=== PATIENT | female | born 1955 | race Caucasian/White ===

== ENCOUNTER 2017-07-19 17:05 | Emergency (ER) | payer OTHER ==
[2017-07-19 17:33] VITALS: BP 144/92
--- NOTE | 2017-07-19 18:12 | UC ---
Knee Pain HPI - HPI Summary HPI Summary: While at work yesterday patient lifted up a box hit her knee planted twisted to move the box and had a sudden onset and pain in her left knee now when she weight bears on her knee or goes to stand on her knee she has a sensation her knee is going to give out patient has pain to the right and left of her patella - History of Current Complaint Chief Complaint: UCLowerExtremity Stated Complaint: KNEE INJURY Time Seen by Provider: 07/19/17 18:11 Hx Obtained From: Patient ?: No Onset/Duration: Sudden Onset, Lasting Days - 1 Severity Initially: Mild Severity Currently: Mild Location Of Injury: Left knee Pain Intensity: 3 Pain Scale Used: 0-10 Numeric Character: Aching, Throbbing Aggravating Factor(s): Movement, Weight Bearing Associated Signs And Symptoms: Positive: Weakness Able to Bear Weight: Yes - Allergies/Home Medications Allergies/Adverse Reactions: Allergies Allergy/AdvReac Type Severity Reaction Status Date / Time No Known Allergies Allergy Verified 07/19/17 17:32 PMH/Surg Hx/FS Hx/Imm Hx Previously Healthy: No - Surgical History Surgical History: Yes Surgery Procedure, Year, and Place: tonsillectomy. tubal ligation - Family History Known Family History: Positive: None - Social History Occupation: Employed Full-time Lives: With Family Alcohol Use: Rare Substance Use Type: None Smoking Status (MU): Never Smoked Tobacco Review of Systems Constitutional: Negative Skin: Negative Eyes: Negative ENT: Negative Respiratory: Negative Cardiovascular: Negative Gastrointestinal: Negative Genitourinary: Negative Motor: Negative Neurovascular: Negative Musculoskeletal: Arthralgia - Left knee Neurological: Negative Psychological: Negative Is Patient Immunocompromised?: No All Other Systems Reviewed And Are Negative: Yes Physical Exam Triage Information Reviewed: Yes Appearance: Well-Appearing, No Pain Distress, Well-Nourished Vital Signs: Initial Vital Signs Temp 98.6 F 07/19/17 17:28 Pulse 75 07/19/17 17:28 Resp 14 07/19/17 17:28 BP 144/92 07/19/17 17:28 Pulse Ox 100 07/19/17 17:28 Vital Signs Reviewed: Yes Eye Exam: Normal Eyes: Positive: Conjunctiva Clear ENT Exam: Normal ENT: Positive: Normal ENT inspection, Hearing grossly normal. Negative: Nasal congestion, Nasal drainage, Trismus, Muffled voice, Hoarse voice, Dental tenderness Neck exam: Normal Neck: Positive: Supple, Nontender, No Lymphadenopathy Respiratory Exam: Normal Respiratory: Positive: Chest non-tender, Lungs clear, Normal breath sounds, No respiratory distress, No accessory muscle use Cardiovascular Exam: Normal Cardiovascular: Positive: RRR, No Murmur, Pulses Normal, Brisk Capillary Refill Musculoskeletal Exam: Normal Musculoskeletal: Positive: Strength Intact, ROM Intact, No Edema Neurological Exam: Normal Neurological: Positive: Alert Psychological Exam: Normal Skin Exam: Normal Diagnostics - Radiology No standard instances Xray Interpretation: No Acute Changes Radiology Interpretation Completed By: Radiologist Knee Pain Course/Dx - Course Course Of Treatment: Corby wrap knee immobilizer and crutches Tylenol for pain rest ice elevation and follow knee with orthopedic doctor on-call follow blood pressure with primary care doctor referral made - Differential Dx/Diagnosis Provider Diagnoses: Elevated blood pressure without diagnosis of hypertension, left knee injury Discharge - Sign-Out/Discharge Documenting (check all that apply): Discharge - Discharge Plan Condition: Stable Disposition: HOME Patient Education Materials: Crutch Instructions (ED), Knee Pain (ED), Hypertension (ED), Ice Pack Application (ED), Knee Immobilizer (ED) Forms: *Work Release Referrals: [facility] [Outside] - 1 Week Jeremy Conway MD [Medical Doctor] - 3 Days - Billing Disposition and Condition Condition: STABLE Disposition: HOME
--- NOTE | 2017-07-19 19:00 | RAD ---
HISTORY: Left knee injury COMPARISONS: None VIEWS: 5, Frontal, lateral, axial, and oblique views of the left knee FINDINGS: BONE DENSITY: Normal. BONES: There is no displaced fracture. JOINTS: There is no arthropathy. There is no suprapatellar joint effusion or lipohemarthrosis. ALIGNMENT: There is no dislocation. SOFT TISSUES: Unremarkable. OTHER FINDINGS: None. IMPRESSION: NO ACUTE OSSEOUS INJURY. IF SYMPTOMS PERSIST, RECOMMEND REPEAT IMAGING.
== END 2017-07-19 19:45 | disposition home or self-care (01) ==
LOC: UCEAST 17:05
DX: S89.92XA Unspecified injury of left lower leg, initial encounter (principal); X50.0XXA Overexertion from strenuous movement or load, initial encounter; Y92.9 Unspecified place or not applicable; R03.0 Elevated blood-pressure reading, without diagnosis of hypertension
CPT/HCPCS: 99213; G0463

== ENCOUNTER 2019-02-16 10:16 | Emergency (ER) | payer OTHER ==
[2019-02-16 10:50] VITALS: BP 146/76
--- NOTE | 2019-02-16 11:00 | UC ---
Throat Pain/Nasal Moncho HPI - HPI Summary HPI Summary: 63 year old female with no PMH presents with cry cough, sinus pressure b/l ( will switch sides at times) ear "poppong" b/l. Patient denies fever, chills , CARL, N/V/C/D. otherwise feeling well other than slightly tired. intermitent throat soreness - History of Current Complaint Chief Complaint: UCGeneralIllness Stated Complaint: RESP ISSUE Time Seen by Provider: 02/16/19 10:51 Hx Obtained From: Patient ?: No Onset/Duration: Sudden Onset, Lasting Days Severity: Mild Pain Intensity: 0 Pain Scale Used: 0-10 Numeric Cough: Nonproductive Associated Signs & Symptoms: Positive: Sinus Discomfort, Nasal Discharge. Negative: Dysphagia, FB Sensation, Wheezing, Hoarseness, Fever, Vomiting, Rash - Allergies/Home Medications Allergies/Adverse Reactions: Allergies Allergy/AdvReac Type Severity Reaction Status Date / Time No Known Allergies Allergy Verified 02/16/19 10:21 PMH/Surg Hx/FS Hx/Imm Hx Previously Healthy: Yes - Surgical History Surgical History: Yes Surgery Procedure, Year, and Place: tonsillectomy. tubal ligation - Family History Known Family History: Positive: None, Non-Contributory - Social History Alcohol Use: Occasionally Substance Use Type: None Smoking Status (MU): Never Smoked Tobacco Review of Systems All Other Systems Reviewed And Are Negative: Yes Constitutional: Positive: Fatigue. Negative: Fever, Chills Eyes: Negative: Drainage, Eye Redness ENT: Positive: Dental Pain, Ear Ache, Nasal Discharge, Sinus Congestion, Sinus Pain/Tenderness. Negative: Sore Throat Respiratory: Negative: Shortness Of Breath, Cough Physical Exam Vital Signs: Initial Vital Signs Temp 97.3 F 02/16/19 10:22 Pulse 70 02/16/19 10:22 Resp 16 02/16/19 10:22 BP 146/76 02/16/19 10:22 Pulse Ox 100 02/16/19 10:22 Eyes: Positive: Conjunctiva Clear ENT: Positive: Pharynx normal, TMs normal, Sinus tenderness - b/l minimal. Negative: Pharyngeal erythema, TM bulging, TM dull, TM red - cerumen impaction on L ear, Tonsillar swelling, Tonsillar exudate, Uvula midline Neck: Positive: Supple, Nontender, No Lymphadenopathy. Negative: Nuchal Rigidity, Enlarged Nodes @ Respiratory: Positive: Chest non-tender, Lungs clear, Normal breath sounds, No respiratory distress, No accessory muscle use. Negative: Respiratory distress, Crackles, Rhonchi, Stridor, Wheezing Cardiovascular: Positive: RRR, No Murmur Abdomen Description: Negative: CVA Tenderness (R), CVA Tenderness (L) Neurological: Positive: Alert Skin Exam: Normal Throat Pain/Nasal Course/Dx - Course Course Of Treatment: SInusitis: - Increase fluid intake - Over the counter medications for symptoms - ANtibiotics as directed - Tylenol/ motrin as needed for pain - REturn with fever, chills, increased pain, shortness of breath - Differential Dx/Diagnosis Differential Diagnosis/HQI/PQRI: Pharyngitis, URI Provider Diagnosis: Sinusitis Discharge ED - Sign-Out/Discharge Documenting (check all that apply): Patient Departure All imaging exams completed and their final reports reviewed: No Studies - Discharge Plan Condition: Good Disposition: HOME Prescriptions: Azithromyxin BRIA (NF) [Z-Bria (Zithromax) 250 mg tabs #6] 2 tab PO .TODAY, THEN 1 DAILY #6 tab Patient Education Materials: Sinusitis (ED) Referrals: [facility] [Outside] No Primary Care Phys,NOPCP [Primary Care Provider] - Additional Instructions: - Increase fluid intake - Over the counter medications for symptoms - ANtibiotics as directed - Tylenol/ motrin as needed for pain - REturn with fever, chills, increased pain, shortness of breath - Billing Disposition and Condition Condition: GOOD Disposition: Home
== END 2019-02-16 11:20 | disposition home or self-care (01) ==
LOC: UCEAST 10:16
DX: J32.9 Chronic sinusitis, unspecified (principal); K08.89 Other specified disorders of teeth and supporting structures
CPT/HCPCS: 99213; G0463